=== PATIENT | female | born 1980 | race African-American/Black ===

== ENCOUNTER 2019-11-12 12:58 | Emergency (ER) | payer OTHER ==
[~2019-11-12] VITALS: Ht 160 cm; Wt 81.7 kg
[~2019-11-12 12:58] MED LIST: FLONASE 0.05%50 MCG NASAL; PROMETH-CODEIN 65 ML PO; TYLENOL COLD &1 EACH PO
[2019-11-12 14:10] VITALS: BP 107/70
[2019-11-12] MEDS ORDERED: DOXYCYCLINE 10100 MG PO (14:43)
== END 2019-11-12 14:10 | disposition home or self-care (01) ==
LOC: ER 12:58
DX: S91.112A Laceration without foreign body of left great toe without damage to nail, initial encounter (principal); S91.115A Laceration without foreign body of left lesser toe(s) without damage to nail, initial encounter; Z79.899 Other long term (current) drug therapy; W25.XXXA Contact with sharp glass, initial encounter; Y93.89 Activity, other specified; Y92.89 Other specified places as the place of occurrence of the external cause; Y99.8 Other external cause status

== ENCOUNTER → 2019-11-16 | Outpatient (CLI) | payer OTHER ==
[~2019-11-16] MED LIST changes: +DOXYCYCLINE 10100 MG PO; +PERCOCET 7.5-31 EAC1 PO
== END ==
LOC: LAB 14:33
PROVIDERS: ATTEND Orthopaedic Surgery Foot and Ankle Surgery
DX: Z01.812 Encounter for preprocedural laboratory examination (principal); Z20.828 Contact with and (suspected) exposure to other viral communicable diseases

== ENCOUNTER 2019-11-17 11:16 | Day surgery (SDC) | payer OTHER ==
[~2019-11-17] VITALS: Ht 160 cm; Wt 83.9 kg
--- NOTE | ~2019-11-17 | O ---
[facility] [place] [address] OPERATIVE REPORT Name: SETH BALDWIN Room #: 150-3 [facility]#: [id number] Admission: 11/17/19 Attend Phys: Max Pagan MD Discharge: Date of : 76 Report #: [id number] THIS REPORT FOR: cc: KEMAR - Ild[facility] family physician/PCP KEMAR - [facility]ld[facility] family physician/PCP Max Pagan MD ~ CC: [facility] physician/PCP Max Pagan DATE OF SERVICE: 11/17/2019 PREOPERATIVE DIAGNOSIS: Left great toe extensor hallucis longus tendon laceration. POSTOPERATIVE DIAGNOSIS: Left great toe extensor hallucis longus tendon laceration. PROCEDURE: Left great toe extensor hallucis longus tendon repair. SURGEON: Dr. Max Pagan. PIPING ENGINEER: Farida Lopez. ANESTHESIA: General. ESTIMATED BLOOD LOSS: Minimal. DRAINS: No drains. TOURNIQUET TIME: 20 minutes. DESCRIPTION OF PROCEDURE: The patient brought to the operating room where she was placed under general anesthesia. Once under adequate general anesthesia, her left lower extremity was prepped and draped in sterile manner. The extremity was elevated, exsanguinated, tourniquet placed to 250 mmHg. The patient's laceration that she had sustained was then opened with a #15 blade. This was extended in a Z fashion distally and proximally. The tendon laceration was identified, was complete into the interphalangeal joint. The tendon was then freed both proximally and distally with a hemostat and subsequently repaired with 2-0 Ethibond with a 4 strand Cj type repair. This was oversewn with the 2-0 Ethibond as well to complete the repair. Excellent repair was achieved in this manner. The wound was then irrigated copiously and closed with 3-0 nylon for the skin. The wound was dressed with Xeroform, 4 x 4s, and sterile soft compressive dressing was placed. Tourniquet was let down at 20 minutes. Toes were pink and warm with good capillary refill. There were no [facility] [address] [place] [address] OPERATIVE REPORT Name: SETH BALDWIN Room #: 150-3 [facility]#: [id number] Admission: 11/17/19 Attend Phys: Max Pagan MD Discharge: Date of : 76 Report #: [id number] complications from the procedure. The patient tolerated the procedure well and went to recovery room without incident. By: [id number] Max Pagan MD /nt
[~2019-11-17 11:16] MED LIST changes: -PERCOCET 7.5-31 EAC1 PO
[2019-11-17 12:00] VITALS: BP 129/87
[2019-11-17] MEDS ORDERED: PERCOCET 7.5-31 EAC1 PO (12:54)
[2019-11-17 13:44] VITALS: BP 129/87
== END 2019-11-17 14:35 | disposition home or self-care (01) ==
LOC: TBA 11:16 → OR 11:16 → TBA 11:19 → OR 14:35
PROVIDERS: ATTEND Orthopaedic Surgery Foot and Ankle Surgery
DX: S96.122A Laceration of muscle and tendon of long extensor muscle of toe at ankle and foot level, left foot, initial encounter (principal); Z98.890 Other specified postprocedural states; Z79.899 Other long term (current) drug therapy; X58.XXXA Exposure to other specified factors, initial encounter; Y93.89 Activity, other specified; Y92.89 Other specified places as the place of occurrence of the external cause; Y99.8 Other external cause status
CPT/HCPCS: 50010; 50101; 50386; 56524; 56527; 57091; 62110; 62900; 70005